=== PATIENT | female | born 1995 | race African-American/Black ===

== ENCOUNTER 2021-11-02 14:40 | Inpatient (IN) | payer OTHER ==
[2021-11-02 15:53] VITALS: BMI 37.3
[2021-11-02 16:53] LABS: BASO % 0.5 % (0-2.0); EOS % 0.8 % (0-4.5); HEMATOCRIT 34.6 % (32.4-45.2); HEMOGLOBIN 11.6 GM/dL (10.7-15.3); LYMPH % 22.3 % (8-40); MCH 30.2 pg (25.7-33.7); MCHC 33.5 g/dl (32.0-36.0); MEAN CELL VOLUME 90.1 fl (80-96); MEAN PLT VOLUME 7.4 fl (7.5-11.1); MONO % 9.2 % (3.8-10.2); NEUT % 67.2 % (42.8-82.8); PLATELET COUNT 360 10^3/uL (134-434); RBC 3.84 M/mm3 (3.60-5.2); RDW 13.8 % (11.6-15.6); WHITE BLOOD COUNT 8.5 K/mm3 (4.0-10.0)
[2021-11-02 17:05] LABS: INR 0.95 (0.83-1.09); PROTHROMBIN TIME (PATIENT) 10.9 SEC (9.7-13.0)
[2021-11-02] MEDS ORDERED: DINOPROSTONE 10 MG VAGINAL SUPPOSITORY VG ONE (17:07)
[2021-11-02 17:15] LABS: CALCIUM 9.2 mg/dL (8.5-10.1)
[2021-11-02 17:16] LABS: BLOOD UREA NITROGEN 6.4 mg/dL (7-18)
[2021-11-02 17:19] LABS: CREATININE 0.5 mg/dL (0.55-1.3)
[2021-11-02] MEDS: ELECTROLYTE-148 SOLN 1,000 ML IV SCH (20:00)
[2021-11-02] MEDS ORDERED: BUTORPHANOL TARTRATE 2 MG/ML VIAL ONE (22:47)
[2021-11-02] MEDS: BUTORPHANOL TARTRATE 1 MG/ML VIAL IVPB PRN (22:55)
[2021-11-03] MEDS ORDERED: CEFAZOLIN 2 GM in DEXTROSE 5%-WATER - 50 ML IVPB ONE (00:57)
[2021-11-03] MEDS: ELECTROLYTE-148 SOLN 1,000 ML IV SCH (01:45)
[2021-11-03] MEDS ORDERED: ceFAZolin SODIUM 1 GM VIAL ONE ×2 (01:48→06:12)
[2021-11-03] MEDS ORDERED: CEFAZOLIN 1 GM/D5W 1 GM/50 ML BAG IVPB SCH ×2 (02:00→10:00)
[2021-11-03] MEDS ORDERED: BUTORPHANOL TARTRATE 2 MG/ML VIAL ONE (02:48)
[2021-11-03] MEDS ORDERED: PROMETHAZINE HCL 25 MG/1 ML VIAL ONE (02:48)
[2021-11-03] MEDS ORDERED: PROMETHAZINE HCL 25 MG/1 ML VIAL IVPUSH ONE (02:50)
[2021-11-03] MEDS: BUTORPHANOL TARTRATE 1 MG/ML VIAL IVPB PRN (02:55)
[2021-11-03] MEDS ORDERED: OXYTOCIN 20 UNITS in 0.9% NS 20 UNIT/1,000 ML INFUS.BAG IV ONE ×2 (06:10→18:28)
[2021-11-03] MEDS ORDERED: CITRIC ACID/SODIUM CITRATE 30 ML UNIT-DOSE CUP PO ONE (06:10)
[2021-11-03] MEDS ORDERED: KETOROLAC TROMETHAMINE 30 MG/1 ML VIAL ONE (06:12)
[2021-11-03] MEDS ORDERED: morphine SULFATE/PF 1 MG/2 ML (2cc Syringe - QUVA) ONE (06:12)
[2021-11-03] MEDS ORDERED: ONDANSETRON 4 MG/2 ML VIAL IVPUSH PRN (06:19)
[2021-11-03] MEDS ORDERED: OXYTOCIN 10 UNITS/ML VIAL ONE (06:59)
[2021-11-03] MEDS: OXYTOCIN 20 UNITS in 0.9% NS 20 UNIT/1,000 ML INFUS.BAG IV SCH ×2 (07:35→19:50)
[2021-11-03 07:53] LABS: CORD HCO3 22.9 mmHg (20-29); CORD PCO2 71.8 mmHg (30-78); CORD pH 7.121 (7.14-7.44)
[2021-11-03 07:54] LABS: CORD HCO3 22.5 mmHg (20-29); CORD PCO2 61.6 mmHg (30-78); CORD pH 7.18 (7.14-7.44)
[2021-11-03] MEDS ORDERED: BENZOCAINE 20% 57 GM BOTTLE TP PRN (08:16)
[2021-11-03] MEDS ORDERED: BENZOCAINE 28 GM HEMORRHOIDAL OINTMENT TP PRN (08:16)
[2021-11-03] MEDS ORDERED: METHYLERGONOVINE MALEATE 0.2 MG/1 ML AMP IM PRN (08:16)
[2021-11-03] MEDS ORDERED: ACETAMINOPHEN 325 MG TABLET (FP) PO PRN (08:16)
[2021-11-03] MEDS ORDERED: SENNOSIDES/DOCUSATE COMBO (SENNA PLUS) TABLET (UD) PO PRN (08:16)
[2021-11-03] MEDS ORDERED: AZITHROMYCIN IVPB 500 MG/250 ML BAG IVPB STA (08:20)
[2021-11-03] MEDS ORDERED: AZITHROMYCIN IVPB 500 MG/250 ML BAG IVPB ONE (08:32)
[2021-11-03] MEDS: PRENATAL VITAMINS W/ FOLIC ACID TABLET (FP) PO SCH (09:47)
[2021-11-03] MEDS: FERROUS SO4 325 MG TABLET (FP) PO SCH ×2 (09:47→17:37)
[2021-11-03] MEDS: IBUPROFEN 800 MG/8 ML IJ IVPB PRN ×2 (11:44→19:49)
[2021-11-03] MEDS: SIMETHICONE 80 MG TAB.CHEW (FP) PO PRN (19:47)
[2021-11-04] MEDS: IBUPROFEN 600 MG TABLET (FP) PO PRN ×2 (03:45→09:28)
[2021-11-04] MEDS: SIMETHICONE 80 MG TAB.CHEW (FP) PO PRN ×2 (03:45→21:12)
[2021-11-04 08:00] LABS: BASO % 0.3 % (0-2.0); EOS % 0.6 % (0-4.5); HEMATOCRIT 32.2 % (32.4-45.2); HEMOGLOBIN 10.8 GM/dL (10.7-15.3); LYMPH % 20.6 % (8-40); MCH 29.8 pg (25.7-33.7); MCHC 33.4 g/dl (32.0-36.0); MEAN CELL VOLUME 89.4 fl (80-96); MEAN PLT VOLUME 7.7 fl (7.5-11.1); MONO % 6.6 % (3.8-10.2); NEUT % 71.9 % (42.8-82.8); PLATELET COUNT 347 10^3/uL (134-434); RDW 13.3 % (11.6-15.6); WHITE BLOOD COUNT 10.8 K/mm3 (4.0-10.0)
[2021-11-04] MEDS ORDERED: BISACODYL 10 MG SUPP.RECT RC PRN (08:17)
[2021-11-04] MEDS: FERROUS SO4 325 MG TABLET (FP) PO SCH ×2 (09:27→17:03)
[2021-11-04] MEDS: PRENATAL VITAMINS W/ FOLIC ACID TABLET (FP) PO SCH (09:27)
[2021-11-04] MEDS ORDERED: DIPHTH,PERTUSS(ACELL),TET 0.5 ML DISP.SYRIN IM ONE (10:00)
[2021-11-04] MEDS ORDERED: oxyCODONE HCL 5 MG TABLET PO PRN ×2 (10:00)
[2021-11-05] MEDS: IBUPROFEN 600 MG TABLET (FP) PO PRN ×2 (06:11→16:13)
[2021-11-05] MEDS: SIMETHICONE 80 MG TAB.CHEW (FP) PO PRN ×2 (06:13→16:14)
[2021-11-05] MEDS: FERROUS SO4 325 MG TABLET (FP) PO SCH ×2 (08:43→18:24)
[2021-11-05] MEDS: PRENATAL VITAMINS W/ FOLIC ACID TABLET (FP) PO SCH (09:43)
[2021-11-05 10:47] VITALS: BP 117/65; PULSE 88; TEMP 97.9
== END 2021-11-05 19:30 | disposition home or self-care (01) | DRG 540 ==
LOC: JLDR 14:40 → J3W 11-03 08:50
PROVIDERS: ADMIT Obstetrics & Gynecology; ATTEND Obstetrics & Gynecology
PROC: 10D00Z1 Extraction of Products of Conception, Low, Open Approach (ICD-10-PCS; principal; 2021-11-03)
DX: O48.0 Post-term pregnancy (principal); Z3A.41 41 weeks gestation of pregnancy; O99.214 Obesity complicating childbirth; E66.9 Obesity, unspecified; O61.0 Failed medical induction of labor; O76 Abnormality in fetal heart rate and rhythm complicating labor and delivery; Z37.0 Single live birth
CPT/HCPCS: 36415; 36600; 80048; 82803; 85025; 85610; 85730; 86780; 86850; 86900; 86901; 88307-TC; 90715; C9803-CS; U0003; U0005